=== PATIENT | male | born 1985 | race Caucasian/White ===

== ENCOUNTER 2018-06-25 12:29 | Emergency (ER) | payer SELFPAY ==
[~2018-06-25] VITALS: Ht 165.1 cm; Wt 66.0 kg
[2018-06-25 12:49] VITALS: BP 151/87; PULSE 73; RESP 16; Ht 165.1 cm; Wt 66.0 kg
--- NOTE | 2018-06-25 14:47 | ERD ---
ER Documentation Chief Complaint Chief Complaint reports feeling like he has low blood pressure, denies syncopy/medical hx HPI 33-year-old male presents after getting dizzy standing up. The symptoms persisted for several minutes. He also had some chills. He felt like his blood pressure was low. He denies any recent illness, measured fevers, cough, sore throat, vomiting, abdominal pain, urinary complaints. Is never had this before denies any stressful events or inciting events prior to symptoms. ROS All systems reviewed and are negative except as per history of present illness. Allergies Allergies: Coded Allergies: No Known Allergy (Unverified , 06/25/18) PMhx/Soc Medical and Surgical Hx: pt denies Medical Hx, pt denies Surgical Hx Hx Alcohol Use: No Hx Substance Use: No Hx Tobacco Use: No Physical Exam Vitals Vital Signs Date Temp Pulse Resp B/P (MAP) Pulse Ox O2 O2 Flow FiO2 Time Delivery Rate 06/25/18 98.3 73 16 151/87 99 12:49 (108) Physical Exam Const: No acute distress Head: Atraumatic Eyes: Normal Conjunctiva ENT: Normal External Ears, Nose and Mouth. Neck: Full range of motion. No meningismus. Resp: Clear to auscultation bilaterally Cardio: Regular rate and rhythm, no murmurs Abd: Soft, non tender, non distended. Normal bowel sounds Skin: No petechiae or rashes Back: No midline or flank tenderness Ext: No cyanosis, or edema Neur: Awake and alert Psych: Normal Mood and Affect Result Diagram: 06/25/18 1346 06/25/18 1345 Results 24 hrs Laboratory Tests Test 06/25/18 13:45 06/25/18 13:46 Sodium Level 140 mmol/L Potassium Level 4.2 mmol/L Chloride Level 101 mmol/L Carbon Dioxide Level 27 mmol/L Anion Gap 12 Blood Urea Nitrogen 20 mg/dl Creatinine 1.07 mg/dl Est Glomerular Filtrat Rate mL/min > 60 mL/min Glucose Level 99 mg/dl Calcium Level 10.9 mg/dl Total Bilirubin 0.4 mg/dl Direct Bilirubin 0.00 mg/dl Indirect Bilirubin 0.4 mg/dl Aspartate Amino Transf (AST/SGOT) 30 IU/L Alanine Aminotransferase (ALT/SGPT) 31 IU/L Alkaline Phosphatase 111 IU/L Total Protein 9.8 g/dl Albumin 5.6 g/dl Globulin 4.20 g/dl Albumin/Globulin Ratio 1.33 White Blood Count 9.2 10^3/ul Red Blood Count 5.45 10^6/ul Hemoglobin 16.3 g/dl Hematocrit 47.9 % Mean Corpuscular Volume 87.9 fl Mean Corpuscular Hemoglobin 29.9 pg Mean Corpuscular Hemoglobin Concent 34.0 g/dl Red Cell Distribution Width 12.8 % Platelet Count 227 10^3/UL Mean Platelet Volume 9.9 fl Immature Granulocytes % 0.300 % Neutrophils % 72.5 % Lymphocytes % 18.5 % Monocytes % 6.9 % Eosinophils % 1.3 % Basophils % 0.5 % Nucleated Red Blood Cells % 0.0 /100WBC Immature Granulocytes # 0.030 10^3/ul Neutrophils # 6.7 10^3/ul Lymphocytes # 1.7 10^3/ul Monocytes # 0.6 10^3/ul Eosinophils # 0.1 10^3/ul Basophils # 0.1 10^3/ul Nucleated Red Blood Cells # 0.0 10^3/ul Procedures/MDM Patient presents what appears to be a near syncopal episode, possibly vasovagal given the significant abnormalities noted today. He has a normal exam and feels better after observation and evaluation. EKG: Rate/Rhythm: Normal Sinus Rhythm. Rate equals 68 QRS, ST, T-waves: No changes consistent w/ acute ischemia Impression: No evidence of ischemia or arrhythmia impression-no acute findings of ischemia or arrhythmia on EKG. Seen CMP showed no significant acute abnormalities. Patient is well-appearing on serial exam. Patient be discharged home with instructions for rest, fluids, and recheck for new or worsening symptoms with primary care doctor this week. Patient was advised he may have early viral illness which may be early in its course. The patient was stable with no new complaints during the ER course. Clinically, there is no current evidence to suggest meningitis, sepsis, acute abdomen, pneumonia, stroke, acute coronary syndrome, pulmonary embolism, aortic dissection or any other emergent condition appearing to require further evalua tion or hospitalization. Patient counseled regarding my diagnostic impression and care plan. Prior to discharge all questions answered. Pt agrees with treatment plan and understands strict return precautions. Pt is instructed to follow up with primary care provider within 24-48 hours. Precautionary instructions provided including instructions to return to the ER if not improving or for any worsening or changing symptoms or concerns. Departure Diagnosis: Primary Impression: Vasovagal near-syncope Additional Impression: Near syncope Condition: Stable Patient Instructions: Near Syncope, Unknown, Near Syncope, Vasovagal Referrals: [facility] YOU HAVE RECEIVED A MEDICAL SCREENING EXAM AND THE RESULTS INDICATE THAT YOU DO NOT HAVE A CONDITION THAT REQUIRES URGENT TREATMENT IN THE EMERGENCY DEPARTMENT. FURTHER EVALUATION AND TREATMENT OF YOUR CONDITION CAN WAIT UNTIL YOU ARE SEEN IN YOUR DOCTORS OFFICE WITHIN THE NEXT 1-2 DAYS. IT IS YOUR RESPONSIBILITY TO MAKE AN APPOINTMENT FOR FOLOW-UP CARE. IF YOU HAVE A PRIMARY DOCTOR --you should call your primary doctor and schedule an appointment IF YOU DO NOT HAVE A PRIMARY DOCTOR YOU CAN CALL OUR PHYSICIAN REFERRAL HOTLINE AT IF YOU CAN NOT AFFORD TO SEE A PHYSICIAN YOU CAN CHOSE FROM THE FOLLOWING [facility] [address] [facility] [address] [facility] [address] [facility] [address] [facility] [address] [facility]. [address] Additional Instructions: No significant abnormalities on examinations today. May be early viral illness. Recommend Tylenol, drink fluids, recheck for new or worsening symptoms with primary care doctor. KEVIN LOJA MD Jun 25, 2018 14:47
== END 2018-06-25 15:10 | disposition home or self-care (01) ==
LOC: FTE 12:29
DX: R55 Syncope and collapse (principal)
CPT/HCPCS: 36415; 80053; 85025; 93005